=== PATIENT | male | born 1975 | race African-American/Black ===

== ENCOUNTER 2021-09-29 20:55 | Emergency (ER) | payer MEDICAID, OTHER ==
[~2021-09-29] VITALS: Ht 175.3 cm; Wt 129.3 kg
[2021-09-29] MEDS ORDERED: LORazepam 2MG/ML-1ML VIAL ONE (22:14)
[2021-09-29] MEDS ORDERED: LORazepam 2MG/ML-1ML VIAL IM ONE (22:15)
[2021-09-30 02:58] LABS: Basophils # (auto) 0.1 10 ^3/uL (0-0.2); Basophils % (auto) 0.7 % (0.0-2.0); Eosinophils # (auto) 0.1 10 ^3/uL (0-0.8); Eosinophils % (auto) 1.5 % (0.0-7.0); Hematocrit 47.2 % (41.0-53.0); Hemoglobin 16.7 g/dL (13.5-17.5); Lymphocytes # (auto) 2.6 10 ^3/uL (0.4-5.4); Lymphocytes % (auto) 33.8 % (10.0-50.0); Mean Corpuscular Hemoglobin 33.7 pg (28.0-32.0); Mean Corpuscular Hgb Conc. 35.4 g/dL (32.0-36.0); Mean Corpuscular Volume 95.4 fL (80.0-100.0); Monocytes # (auto) 0.6 10 ^3/uL (0-1.3); Monocytes % (auto) 7.7 % (0.0-12.0); Neutrophils # (auto) 4.3 10 ^3/uL (1.6-8.6); Neutrophils % (auto) 56.3 % (37.0-80.0); Nucleated Red Blood Cells % 0.2 %; Red Blood Cells 4.95 10^6/uL (4.5-5.90); Red Cell Distribution Width 13.3 % (11.8-14.3); White Blood Cell 7.6 10^3/uL (4.4-10.8)
[2021-09-30 03:18] LABS: Albumin 3.5 g/dL (3.4-5.0); Calcium 9.2 mg/dL (8.5-10.1)
[2021-09-30 03:20] LABS: BUN/Creatinine Ratio 7.6; Salicylate 3.9 mg/dL (2.8-20.0)
[2021-09-30 03:20] LABS: Amphetamine Screen, Urine POSITIVE (NEGATIVE); Barbiturate Scree,Urine NEGATIVE (NEGATIVE); Benzodiazephine Screen, Urine NEGATIVE (NEGATIVE); Cannabinoid Screen, Urine POSITIVE (NEGATIVE); Cocaine Screen, Urine NEGATIVE (NEGATIVE); Opiate Scree,Urine NEGATIVE (NEGATIVE); Phencyclidine Screen, Urine NEGATIVE (NEGATIVE)
[2021-09-30 03:23] LABS: Bilirubin, Total 1.1 mg/dL (0.2-1.0); Total Protein 7.4 g/dL (6.4-8.2)
[2021-09-30 03:24] LABS: Acetaminophen < 2.0 ug/mL (10-30)
[2021-09-30] MEDS ORDERED: HYDROcodone-ACET 5/325MG TAB PO ONE (09:45)
[2021-09-30] MEDS ORDERED: LORazepam 0.5 MG TAB PO ONE (09:45)
[2021-09-30] MEDS ORDERED: POTASSIUM EFFERVESENT TAB 25 MEQ PO ONE (14:00)
[2021-09-30] MEDS ORDERED: ALPRAZolam 0.5 MG TAB PO ONE (15:30)
[2021-09-30] MEDS ORDERED: OLANZapine 5 MG TAB PO ONE (22:00)
[2021-09-30] MEDS ORDERED: OXcarbazepine 300 MG TAB PO ONE (22:00)
[2021-10-01] MEDS ORDERED: HYDROcodone-ACET 5/325MG TAB PO ONE (14:45)
[2021-10-01] MEDS ORDERED: LORazepam 0.5 MG TAB PO ONE (14:45)
[2021-10-02 10:00] VITALS: BP 105/79
== END 2021-10-02 11:22 | disposition home or self-care (01) ==
LOC: EDBD 20:55 → ER 20:58
DX: F10.10 Alcohol abuse, uncomplicated (principal); R45.851 Suicidal ideations; F19.90 Other psychoactive substance use, unspecified, uncomplicated; I10 Essential (primary) hypertension; E11.9 Type 2 diabetes mellitus without complications; Z20.822 Contact with and (suspected) exposure to COVID-19; Y90.2 Blood alcohol level of 40-59 mg/100 ml
CPT/HCPCS: 36415; 71046; 80053; 80307; 80329; 85025; 87426; 93005; 96372; 99285; J2060